=== PATIENT | male | born 1970 | race Caucasian/White ===

== ENCOUNTER 2022-07-17 14:48 | Emergency (ER) | payer BC ==
[2022-07-17] MEDS ORDERED: Boostrix 0.5 ML (Tdap) VIAL (>/=7 yrs of age) ONE (15:12)
== END 2022-07-17 16:21 | disposition home or self-care (01) ==
LOC: NAV ERS 14:48
DX: S61.011A Laceration without foreign body of right thumb without damage to nail, initial encounter (principal); W26.8XXA Contact with other sharp object(s), not elsewhere classified, initial encounter; Z23 Encounter for immunization
CPT/HCPCS: 12001; 90471; 90715